=== PATIENT | male | born 1990 | race American Indian/Alaskan Native ===

== ENCOUNTER 2016-10-26 13:28 | Emergency (ER) | payer MEDICAID ==
[~2016-10-26] VITALS: Ht 175.3 cm; Wt 66.2 kg
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
[2016-10-26 15:02] VITALS: BP 98/58
--- NOTE | 2016-10-27 16:51 | Cardiology Report ---
APPROVED REPORT EKG Measurement Heart [id number] Normal sinus rhythm Cannot rule out Anterior infarct, age undetermined Abnormal ECG
== END 2016-10-26 15:07 | disposition home or self-care (01) ==
LOC: EMR 14:02
DX: R00.2 Palpitations (principal); F15.90 Other stimulant use, unspecified, uncomplicated
CPT/HCPCS: 80300; 93005; 99283